=== PATIENT | male | born 1950 | race Caucasian/White ===

== ENCOUNTER 2024-04-30 12:46 | Inpatient (IN) | payer OTHER, SELFPAY ==
[2024-04-30] VITALS (45 sets, daily range): BP systolic 84–125; BP diastolic 58–98; BMI 26.6; BMI 25.5
[2024-04-30 06:40] LABS: % Basophils 0.1 % (0-2); % Eosinophils 0.1 % (0-6); % Immature Granulocytes 0.5 % (0-0.5); % Monocytes 10.5 % (1.7-9.3); % Neutrophils 83.8 % (42.2-75.2); Absolute Immature Granulocytes 0.1 10^3/uL (0-0.05); Absolute Lymphocytes 0.8 10^3/uL (1.2-3.4); Absolute Monocytes 1.6 10^3/uL (0.1-0.6); Hematocrit 49.8 % (39.0-52.0); Hemoglobin 17.5 g/dL (13.0-18.0); Mean Corp Hgb Conc. 35.1 g/dL (33.0-37.0); Mean Corpuscular Hgb 31.3 pg (27.0-31.0); Mean Corpuscular Volume 88.9 fL (80.0-94.0); Mean Platelet Volume 10.6 fL (7.4-10.4); Nucleated Red Blood Cells % 0 % (-); Platelet Count 241 10^3/uL (130-400); Red Cell Dist. Width 13.2 % (11.5-14.5); White Blood Cell Count 15.5 10^3/uL (4.8-10.8)
--- NOTE | 2024-04-30 06:45 | ED.GENMED ---
History of Present Illness
General
Chief Complaint: Abdominal Symptoms
Source: patient and spouse
Exam Limitations: none
Time Seen by Provider: 04/30/24 06:22
Nursing documentation reviewed up to this point in time: agreed with
History of Present Illness
History of Present Illness:
73-year-old male presents emergency room complaining of abdominal distention and decreased urine output. He has been incontinent over the last few days, and this is not happened to him before. He passed out last night, per his . He hit his
head, loss consciousness. He has a history of atrial fibrillation, CHF, and his reports that his PSA has been elevated. He has not seen his primary care in about 3 years. He is not taking any of his prescribed medications for atrial
fibrillation, CHF.
Past History
Past History
ED Past Medical History: Arrthythmia and HTN
ED Past Surgical History: None
Social History
Tobacco: Other (Smokes cigars)
Personal:
Living: with family
Employment: Employed
Review of Systems
Review of Systems
Allergies reviewed?: Yes
All Other Systems: Not applicable
Constitutional: Reports no symptoms
EENT: Reports no symptoms
Respiratory: Reports no symptoms
Cardiac: Reports no symptoms
ABD/GI: Reports abdominal pain
: Reports incontinence and difficulty voiding
Musculoskeletal: Reports no symptoms
Skin: Reports no symptoms
Neurological: Reports other (Confusion)
Endocrine: Reports no symptoms
Hematologic/Lymphatic: Reports no symptoms
Psychiatric: Reports no symptoms
Phy Exam
Physical Exam
Physical Exam:
Physical Exam
General: Afebrile
Neck: supple. no meningeal signs. normal posterior pharynx
Heart: s1/s2 tachycardia, irregular rhythm, no murmur. equal radial
pulses.
HEENT: Pupils equal round reactive to light, EOMI
Lungs: no acute respiratory distress. clear bilaterally
Abdomen: normal bowel sounds. not tender. no CVAT, abdomen distended
Neuro: alert and oriented. no focal neurological deficits cranial nerves II through XII intact
Skin: no rash
Psychiatric: well kept. interactive and cooperative
Extremities: no edema. no calf tenderness. negative homans. good distal pulses
Course
Orders/Labs/Results
Orders:
Orders
04/30/24 06:23
IV Insert/Care/Rem.- Treatment PRN
Pulse Ox/cont/shift [RESP] Stat
Quantity: 1
04/30/24 06:24
Electrocardiogram (*1) Stat
Reason for Study: Other
Other Reason for Exam: chest pain
Cardiac Monitoring- Treatment ONCE
EKG- Treatment ONCE
04/30/24 06:32
Complete Blood Count/With Diff Urgent
Comprehensive Metabolic Panel Urgent
Troponin I Urgent
04/30/24 06:35
Diltiazem HCl [Cardizem] 5 mg IV NOW STA
04/30/24 06:36
CT Head W/o Iv Contrast Urgent
Comment:
Reason For Exam: fall, confusion
04/30/24 06:40
Diltiazem 125 mg/125 ml Nss [Cardizem] 125 mg in 125 ml IV NOW
Initial dose in mg/hr, then titrate:: 5
Titrate to keep:: Heart rate 80-100 bpm
Titrate by mg/hr:: 5 mg/hr
Frequency of titrations (minutes):: 15
Maximum dose in mg/hr:: 15
04/30/24 07:02
Urinalysis Reflex To Culture Urgent
Date Specimen was Collected: 04/30/24
Time Specimen was Collected: 07:00
Urine Microscopic Reflex Cult Urgent
04/30/24 07:17
CT Abd/pel Without Iv Or Oral Urgent
Comment:
Reason For Exam: urinary retention
04/30/24 08:03
EKG [Electrocardiogram (*1)] Urgent
Reason for Study: Atrial Fibrillation
EKG- Treatment ONCE
Abnormal Lab Results
04/30/24 04/30/24
06:32 07:02
WBC 15.5 H 10^3/uL
(4.8-10.8)
MCH 31.3 H pg
(27.0-31.0)
MPV 10.6 H fL
(7.4-10.4)
Abs Immat Gran (auto) 0.1 H 10^3/uL
(0-0.05)
Absolute Neuts (auto) 13.0 H 10^3/uL
(1.4-6.5)
Absolute Lymphs (auto) 0.8 L 10^3/uL
(1.2-3.4)
Absolute Monos (auto) 1.6 H 10^3/uL
(0.1-0.6)
Neutrophils % 83.8 H %
(42.2-75.2)
Lymphocytes % 5.0 L %
(20.5-51.1)
Monocytes % 10.5 H %
(1.7-9.3)
Sodium 128 L mmol/L
(135-145)
Chloride 89 L mmol/L
(98-107)
Carbon Dioxide 20 L mmol/L
(22-30)
BUN 95 H mg/dl
(9-20)
Creatinine 8.2 H* mg/dL
(0.7-1.3)
Glucose 106 H mg/dl
(70-99)
Total Bilirubin 1.6 H mg/dl
(0.2-1.3)
Troponin I 0.600 H* ng/ml
Ur Occult Blood Reflex 3+ A
(Negative)
Urine RBC 21-25 A /HPF
(0-2)
04/30/24 06:32
04/30/24 06:32
Vital Signs
Initial and Last Documented VS:
Initial Vital Signs
Temp Pulse Resp BP Pulse Ox
98.0 F 78 16 125/75 97
04/30/24 06:10 04/30/24 06:10 04/30/24 06:10 04/30/24 06:10 04/30/24 06:10
Last Documented Vital Signs
Temp Pulse Resp BP Pulse Ox
98.2 F 83 22 108/86 96
04/30/24 09:45 04/30/24 09:40 04/30/24 09:40 04/30/24 09:40 04/30/24 09:40
MDM/Problems Addressed
Differential Diagnosis Includes:
Acute renal failure, urinary outlet obstruction, prostate cancer, syncope, dysrhythmia, rapid atrial fibrillation, intracranial hemorrhage
MDM/Problems Addressed:
73-year-old male with acute renal failure, rapid atrial fibrillation, paroxysmal, converting after IV fluids and urinary drainage. Patient also with syncope episode, urinary retention, head contusion, hyponatremia, elevated troponin. Suspect
troponin likely induced by tachycardia and acute renal failure. Patient denies chest pain. Discussed with nephrology, Dr. Rosario, who recommends full urinary drainage, and will evaluate for further fluid treatment in conjunction with
hyponatremia. Discussed with Dr. Cuevas, who will see patient.
Chronic conditions affecting care: Arrhythmia
Acute Exacerbation and/or Progression of Chronic Illness: Arrhythmia and Kidney disease
*Radiology
Radiology exam reviewed: preliminary read by ED provider (CT head no acute findings) and radiology read reviewed (CT abdomen pelvis shows moderate right and mild left hydroureteronephrosis, perinephric stranding about right kidney, ovoid lesion in
hepatic dome)
*Pulse Oximetry
Patient hypoxic: no
*EKG
Interpreted by ED Provider?: Yes
EKG Intrepretation Date: 04/30/24
EKG Intrepretation Time: 06:33
Interpretation: abnormal
Comparison EKG: changes noted
Heart Rate: 178
Rate: tachycardiac
Rhythm: a-fib
Gore: normal axis
Interval: normal interval
QRS Pattern: left vent hypertrophy and other (LAFB)
Ischemia: non-specific ST changes
*Ems Director Interpretation
Rate: normal
Interpretation: normal
Heart Rate: 94
Rhythm: sinus
*Critical Care Note
Total Time (30-74mins, 75-104mins- exclusive of procedures): 45
comment:
Critical care statement: A total of 45 minutes of critical care time was provided for this patient. This includes management of unstable vital signs, evaluation of the patient at bedside, reviewing the patient's pertinent medical records, discussion
with consultants, review of old EKGs and review of pertinent medical records. This time with separate from time utilized to perform the aforementioned documented procedures
Data Reviewed
Review of Other/Old Records Reveals: Labs (Prior creatinine 1.2 on 02/27/2021) and Operative Reports (Cardiac catheterization for possible ablation 03/04/2021, ablation by Dr. Luis Newton)
Source: records
Prescriptions/Medications Considered But Not Given:
Cardizem considered, but canceled due to hypotension, patient then spontaneously cardioverted after IV fluids. Anticoagulation will be considered by cardiology
Patient Management
Social determinants of health affecting care: Living situation, Strong social support and Other (Poor compliance)
Discussion with other providers: Hospitalist and Extruder (Cardiology and nephrology)
Escalation/DeEscalation of care consider admission/obs:
Admit indicated
ED Attending Note
-
Portions of this chart may have been created with voice recognition software.� Occasional wrong word or��sound alike� substitutions may have occurred due to the inherent limitations of voice recognition software.
Discharge Plan
Departure
Patient Disposition: Admit
Date of Disposition: 04/30/24
Time of Disposition: 07:57
Admit to: IMU
Presentation/result/management discussed w/ accepting MD/DO: Hospitalist
Patient with high blood pressure during this ER visit?: No
Condition: Serious
Discharge Problem:
Acute renal failure, Acute urinary retention, Atrial fibrillation with rapid ventricular response, Syncope, Contusion of head, Fall, Acute hyponatremia, Medical non-compliance
Prescriptions:
No Action
ascorbic acid (vitamin C) [Vitamin C] 500 MG tablet
1,000 mg PO DAILY
Patient Comments:
04/30/2024 Patient reports can't remember the last time he took medications.
cranberry fruit 400 MG tablet
4 cap PO DAILY PRN (Reason: inflammation)
Patient Comments:
04/30/2024 Patient reports can't remember the last time he took medications.
Slippery Elm Capsules
2 cap PO Q48H PRN (Reason: GI issuse)
Patient Comments:
04/30/2024 Patient reports can't remember the last time he took medications.
Niacels 400 MG capsule, extended release
250 mg PO DAILY
Patient Comments:
04/30/2024 Patient reports can't remember the last time he took medications.
grape seed extract 100 MG capsule
200 mg PO DAILY
Patient Comments:
04/30/2024 Patient reports can't remember the last time he took medications.
black cohosh root extract 80 MG capsule
40 mg PO DAILY
Patient Comments:
04/30/2024 Patient reports can't remember the last time he took medications.
magnesium oxide 400 MG capsule
400 mg PO DAILY
Patient Comments:
04/30/2024 Patient reports can't remember the last time he took medications.
coenzyme Q10 50 MG tablet,chewable
100 mg PO DAILY
Patient Comments:
04/30/2024 Patient reports can't remember the last time he took medications.
hawthorn hamilton 565 MG capsule
565 mg PO DAILY
Patient Comments:
04/30/2024 Patient reports can't remember the last time he took medications.
furosemide 40 MG tablet
40 mg PO DAILY
Patient Comments:
04/30/2024 Patient reports can't remember the last time he took medications.
amiodarone [Pacerone] 200 MG tablet
200 mg PO DAILY Qty: 60 6RF
Patient Comments:
04/30/2024 Patient reports can't remember the last time he took medications.
Rx Instructions:
Please note decreased daily dose
metoprolol succinate 50 MG tablet extended release 24 hr
50 mg PO DAILY Qty: 0 0RF
Patient Comments:
04/30/2024 Patient reports can't remember the last time he took medications.
Rx Instructions:
Please note decreased daily dose
lisinopril 10 MG tablet
10 mg PO DAILY
Patient Comments:
04/30/2024 Patient reports can't remember the last time he took medications.
Eliquis 5 MG tablet
5 mg PO BID Qty: 60 6RF
Patient Comments:
04/30/2024 Patient reports can't remember the last time he took medications.
Referrals:
Mika Brown DO [Family Provider] -
Interventions
Interventions:
*Risk Screen - Suicide Last Done: 04/30/24 07:16
*General Assessment Last Done: 04/30/24 06:10
*Neglect/Abuse Screening Last Done: 04/30/24 07:15
ED- Fall Risk Assessment Last Done: 04/30/24 07:05
*ED COVID-19 Vaccine History Last Done: 04/30/24 06:10
XZ-Ujafpa-Diezqgeegi Assessment Last Done: 04/30/24 07:05
Discharge Date and Time
Print Language: ROMANIAN
[2024-04-30 07:05] LABS: ALT (SGPT) 25 U/L (0-50); AST (SGOT) 22 U/L (17-59); Albumin 4.3 g/dl (3.5-5.0); Alkaline Phosphatase 79 U/L (38-126); Blood Urea Nitrogen 95 mg/dl (9-20); Calcium 8.7 mg/dl (8.4-10.2); Carbon Dioxide 20 mmol/L (22-30); Chloride 89 mmol/L (98-107); Estimated Creatinine Clearance 8 ml/min; Glucose 106 mg/dl (70-99); Potassium 4.4 mmol/L (3.5-5.1); Sodium 128 mmol/L (135-145); Total Bilirubin 1.6 mg/dl (0.2-1.3)
[2024-04-30 07:53] LABS: Urine Albumin Trace (Neg - Trace); Urine Bilirubin Negative (Negative); Urine Character Clear (Clear); Urine Color Yellow; Urine Glucose Negative (Negative); Urine Ketone Negative (Negative); Urine Leukocyte Negative (Negative); Urine Nitrite Negative (Negative); Urine Occult Blood 3+ (Negative); Urine Urobilinogen Negative (Neg - 1+)
--- NOTE | 2024-04-30 08:11 | EDRN ---
Unable to complete home medication list as patient and spouse can not tell what medications patient should be on or when they were last taken. Patient states 'I don't take medications'. Prior list remains on chart until pharmacist can review and
confirm current list.
[2024-04-30 08:13] LABS: Urine Red Blood Cell 21-25 /HPF (0-2)
[2024-04-30 08:14] LABS: Urine Squamous Cell 0-2 /LPF (Few)
--- NOTE | 2024-04-30 10:03 | HPS.HSE ---
Family Physician
-
Family Physician: Mika Brown
Chief Complaint
-
Decreased urine output, fall
History of Present Illness
73-year-old male with a past medical history of paroxysmal atrial fibrillation, CHF, and hypertension who presents with decreased urine output, fall, and near syncope. Patient reports that he has been having decreased urinary output for the last 3
days. Patient and also reports that he had a fall last night, hit his head. Patient did not lose consciousness. His eyes were awake, and he was dazed per . Upon arrival to the ED, patient was found to have rapid atrial fibrillation and
hypotension. He received IV Cardizem bolus and drip, converted to normal sinus rhythm. He denies chest pain, denies shortness of breath. Reports intermittent palpitations. He used to follow with Dr. Neville. He is supposed to be taking
Eliquis 5 mg twice a day, amiodarone 200 mg twice a day, Toprol XL 50 mg daily, and lisinopril 10 mg daily. He self discontinued all his medications years ago, because he did not want to take them.
Medical History
Past Medical History
Past Medical History: Reports Other
Additional Past Medical History:
Paroxysmal atrial fibrillation status post ablation
Hypertension
Hyperlipidemia
Elevated PSA
Medical noncompliance
Past Surgical History: Reports Other
Additional Past Surgical History:
Prostate biopsy x 2
Social History
Tobacco: Smoker (Smokes 1 cigar a day)
Alcohol: None
Drug: None
Personal:
Living: With Family
Family History
Family History: Not pertinent
Allergies / Home Medications
Allergies reflects when Allergies were last updated in [facility].
Home Medications with original date entered in [facility]
Allergy/Medication List:
Allergies
Allergy/AdvReac Type Severity Reaction Status Date / Time
No Known Allergies Allergy Verified 04/30/24 06:18
Home Medications Table - record
�Medication �Instructions �Recorded �Confirmed
Slippery Elm Capsules 2 cap PO Q48H PRN GI issuse 09/12/20 04/30/24
black cohosh root extract 80 mg 40 mg PO DAILY 03/04/21 04/30/24
capsule
dandelion root 500 mg capsule 500 mg PO DAILY 04/30/24 04/30/24
fredrick (Zingiber officinalis) 250 250 mg PO DAILY 04/30/24 04/30/24
mg capsule
magnesium oxide 250 mg PO DAILY 04/30/24 04/30/24
potassium 99 mg tablet 99 mg PO DAILY 04/30/24 04/30/24
turmeric root extract 500 mg tablet 1,000 mg PO DAILY 04/30/24 04/30/24
Review of Systems
-
A 12 point ROS was completed and negative except as noted: Yes
Physical Exam
Vital Signs
Vital Signs
Temp Pulse Resp BP Pulse Ox
98.2 F 83 17 107/86 96
04/30/24 09:45 04/30/24 10:00 04/30/24 10:00 04/30/24 09:45 04/30/24 10:00
Physical Exam
General: No Apparent Distress
HEENT: NormoCephalic, Anicteric and Moist mucous membranes
Respiratory: Clear
Cardiac: S1/S2 and Regular Rhythm
GI: Soft, Non Tender, Non Distended and Normal Bowel Sounds
Musculoskeletal: No Clubbing, No Cyanosis and No Edema
Skin: Warm and Dry
Neuro: Awake, Alert and Oriented
Psych: Calm
Laboratory Results
-
04/30/24 06:32
04/30/24 06:32
Laboratory Results
Total Bilirubin 1.6 mg/dl (0.2-1.3) H 04/30/24 06:32
AST 22 U/L (17-59) 04/30/24 06:32
ALT 25 U/L (0-50) 04/30/24 06:32
Alkaline Phosphatase 79 U/L (38-126) 04/30/24 06:32
Troponin I 0.600 ng/ml H* 04/30/24 06:32
Impression/Plan
-
HPI: 73-year-old male with a past medical history of paroxysmal atrial fibrillation, CHF, and hypertension who presents with decreased urine output, fall, and near syncope. Patient reports that he has been having decreased urinary output for the
last 3 days. Patient and also reports that he had a fall last night, hit his head. Patient did not lose consciousness. His eyes were awake, and he was dazed per . Upon arrival to the ED, patient was found to have rapid atrial
fibrillation and hypotension. He received IV Cardizem bolus and drip, converted to normal sinus rhythm. He denies chest pain, denies shortness of breath. Reports intermittent palpitations. He used to follow with Dr. Neville. He is supposed
to be taking Eliquis 5 mg twice a day, amiodarone 200 mg twice a day, Toprol XL 50 mg daily, and lisinopril 10 mg daily. He self discontinued all his medications years ago, because he did not want to take them.
CT abd/pelvis:
1. Moderate right and mild left hydroureteronephrosis without CT evidence for an obstructing ureteral calculus. Large amount of perinephric fat stranding and fluid about the right kidney for which correlation for a superimposed infection is
recommended.
2. Collapsed urinary bladder with a Crowley catheter in place.
3. Prostatomegaly.
4. Subtle ovoid low-attenuation lesion in the hepatic dome measuring 5.2 cm. Recommend a follow-up abdominal MRI without and with contrast for more definitive characterization on a routine basis.
#Obstructive uropathy
#Prostamegaly
#Acute kidney injury
#Moderate right hydroureteronephrosis with right forniceal rupture, mild left hydroureteronephrosis
#History of elevated PSA
History of 2 prostate biopsies in the past
Crowley inserted in the ER
Appreciate urology input, patient will need to be discharged home with Crowley
Urology recommends starting finasteride, add Flomax when patient is more medically stable
No anticoagulation for 48 hours secondary to risk of decompression hematuria
Creatinine 8.2 on admission
Gentle IV fluids, trend creatinine, no nephrotoxic drugs/NSAIDs
#Hyponatremia
Check urine sodium, urine osmolality, serum osmolality
Check a.m. cortisol, a.m. TSH/free T4
Fluid restrict, trend sodium
#Atrial fibrillation with rapid ventricular response
Converted to normal sinus rhythm in the ER status post IV Cardizem bolus and drip
Start Toprol XL 25 mg twice a day
No anticoagulation for 48 hours secondary to risk of decompression hematuria
#Leukocytosis
Afebrile, UA negative
No cough, no shortness of breath
Monitor off antibiotics
#History of essential hypertension
Blood pressure soft, monitor on metoprolol for rate control
DVT prophylaxis�SCDs
Full code
Updated family at bedside 04/30
Discussed with cardiology and urology
Total time spent to see the patient on the floor, examine the patient, review data and lab results, discuss treatment plan with patient, nursing staff around 77 minutes.
--- NOTE | 2024-04-30 10:44 | CON.CAR ---
Addendum entered and electronically signed by Preet Cuevas MD 04/30/24 12:42:
I saw and examined the patient.
The [employer] Fin[employer] Operator Tig Welder's note was reviewed and I agree with the note.
Comment:
GEN: No distress, awake, Ox3
HEENT: supple, anicteric, mmm
LUNGS: CTA, no wheezes/rales
CV: Reg, S1/S2, 1/6 syst LSB, no gallop
ABD: soft, BS+, NT/ND
EXT: No edema
NEURO: Gross non-focal
SKIN: No rash
Plan:
73-year-old male with past medical history of paroxysmal atrial fibrillation status post PVI in February 28, nonischemic cardiomyopathy, hypertension presents with abdominal pain, incontinence, and obstructive uropathy. He was found to have acute
kidney failure with a creatinine of 8.2. He is having difficulty urinating for 1 week. He then had an episode where he had near syncope. Troponin was abnormal at 0.6. He was found to be in atrial fibrillation with rapid ventricular rate. He was
placed on IV Cardizem and converted to sinus rhythm. CT scan reveals moderate bilateral hydronephrosis without obstructing stones. He had stopped his cardiac medications several years ago. He has not followed up in several years.
Agree with plans for Cervantes and urologic evaluation. Trend creatinine.
Would restart full anticoagulation once stable from a urologic standpoint
Start Toprol 25 mg daily. Will repeat echo on Thursday.
Long-term he should resume Eliquis, hopefully over the next 24-48 hours.
Original Note:
Consultation
Consultation Request
Date/Time Consultation Requested: 04/30/2024
Date/Time Consultation Performed: 04/30/2024
Requesting Provider: Dr. Fair
Performing Provider: Ninoska Gutierrez PA-C for Dr. Cuevas
Reason for Consultation: Abnormal troponin, syncope, A-fib with rapid ventricular response
Medical History
-
History of Present Illness:
HPI 04/30/2024:
Patient is a 73-year-old male with past medical history significant for paroxysmal atrial fibrillation status post PVI and atrial flutter ablation February 2021, nonischemic cardiomyopathy, heart failure and hypertension. Patient was found to have a
nonischemic cardiomyopathy in 2020 in the setting of atrial fibrillation with rapid ventricular response. He underwent PVI ablation and was maintaining sinus rhythm with last follow-up in April 2021. He had repeat echocardiogram in June
2021 which showed normalization of ejection fraction to 55 to 60%. He then was lost to follow-up and has not seen cardiology since. Patient has not seen a doctor in over 3 years. He self discontinued taking all his medication including his
amiodarone and Eliquis.
Patient now presenting to emergency department 04/30/2024 with abdominal pain/distention, decreased urine output with urinary incontinence and syncopal event. Patient reports approximately 1 week ago he started noticing difficulty urinating with
urinary tract symptoms. Then over the last 3 days he noted very minimal urine output with some incontinence. He started having some abdominal pain and distention. He was helping his symptoms by getting hot showers and using warm compresses to the
abdominal area. He started having intermittent palpitations and rapid heartbeats approximately 3 days ago. Last evening after getting out of the shower he had a syncopal episode where he lost consciousness and hit his head. Blood work showed INGRIS
with creatinine of 8.2 as well as hyponatremia and mild leukocytosis. Troponin elevated at 0.600. He was found to be in atrial fibrillation with rapid ventricular response. Head CT showed no acute intracranial abnormality. CT of abdomen showed
moderate right and mild left hydroureteronephrosis without CT evidence for an obstructing ureteral calculus, collapsed urinary bladder, Prostatomegaly and ovoid low-attenuation lesion in liver. Patient spontaneously converted to sinus rhythm after
cervantes catheter was placed. At time of this evaluation patient resting comfortably in bed with Cervantes in place. He reports significant improvement of his abdominal pain and distention. He denies having palpitations or tachycardia, chest pain or
shortness of breath
PMH:
Paroxysmal, typical atrial flutter with RVR
Status post PVI and atrial flutter ablation February 2021
HF with recover EF
Nonischemic cardiomyopathy, resolved
Hypertension
Elevated PSA
Medication noncompliance
Past Medical History
Past Medical History: Other (See HPI)
Past Surgical History: Cardiac (Status post PVI and flutter ablation February 2024)
Social History
Tobacco: Smoker (Cigar smoker)
Alcohol: Occasional
Drug: None
Personal:
Living: With Family
Family History
Family History: Other (Mother had stroke in 70's. Dad prostate CA)
Allergies / Home Medications
Allergy/AdvReac Type Severity Reaction Status Date / Time
No Known Allergies Allergy Verified 04/30/24 06:18
�Medication �Instructions �Recorded �Confirmed �Type
[place] Capsules 2 cap PO Q48H PRN GI issuse 09/12/20 03/04/21 History
ascorbic acid (vitamin C) 500 mg 1,000 mg PO DAILY 09/12/20 03/04/21 History
tablet (Vitamin C)
cranberry fruit 400 mg tablet 4 cap PO DAILY PRN inflammation 09/12/20 03/04/21 History
lisinopril 10 mg tablet 10 mg PO DAILY Blood pressure 02/14/21 03/04/21 History
apixaban 5 mg tablet (Eliquis) 5 mg PO BID Blood clot 02/18/21 03/04/21 Rx
prevention/tx #60 tabs
niacin 400 mg capsule,extended 250 mg PO DAILY 03/01/21 03/04/21 History
release (Niacels)
amiodarone 200 mg tablet (Pacerone) 200 mg PO DAILY Arrhythmia #60 tabs 03/04/21 03/04/21 Rx
black cohosh root extract 80 mg 40 mg PO DAILY 03/04/21 03/04/21 History
capsule
coenzyme Q10 50 mg chewable tablet 100 mg PO DAILY 03/04/21 03/04/21 History
furosemide 40 mg tablet 40 mg PO DAILY Heart Failure 03/04/21 03/04/21 History
grape seed extract 100 mg capsule 200 mg PO DAILY 03/04/21 03/04/21 History
hawthorn hamilton 565 mg capsule 565 mg PO DAILY 03/04/21 03/04/21 History
magnesium oxide 400 mg PO DAILY 03/04/21 03/04/21 History
metoprolol succinate 50 mg 50 mg PO DAILY ##0 03/04/21 03/04/21 Rx
tablet,extended release 24 hr
Review of Systems
-
History Source: Patient
All other systems: Negative unless noted
Physical Exam
Vital Signs
Temp Pulse Resp BP Pulse Ox
98.2 F 83 17 104/83 96
04/30/24 09:45 04/30/24 10:00 04/30/24 10:00 04/30/24 10:00 04/30/24 10:00
GEN: No distress, awake, Ox3, lying in bed
HEENT: supple, anicteric, mmm
LUNGS: CTA, no wheezes/rales; on room air
CV: Reg, S1/S2, no murmur, rub or gallop
ABD: soft, BS+, NT/ND
:Indwelling Cervantes with yellow urine
EXT: No edema, clubbing or cyanosis
NEURO: Gross non-focal
SKIN: No rash, warm, dry, pink
Lab Results
04/30/24 06:32
04/30/24 06:32
Troponin I 0.600 ng/ml H* 04/30/24 06:32
Impression / Plan
-
PCP: Mika Brown
Toll Service Observer: Luis Newton, last seen 04/2021
Impression:
Presents 04/30/2024 with abdominal pain/distention and minimal urine output as well as urinary incontinence
Syncope hitting head 04/29/2024
INGRIS, admission creatinine 8.2
Atrial fibrillation with rapid ventricular response, spontaneous conversion in emergency department
Abnormal troponin initial 0.6
Urinary retention/hydronephrosis
Prostatomegaly
Head contusion
Hyponatremia
Leukocytosis
Paroxysmal, typical atrial flutter with RVR
Status post PVI and atrial flutter ablation February 2021
HF with recover EF
Nonischemic cardiomyopathy, resolved
Hypertension
Elevated PSA
Medication noncompliance
Echo 07/02/2021: EF 55 to 60% with normal regional wall motion. Mild to moderate LVH. No significant valvular disease, PAP 27 mmHg
Echo 10/30/20: EF 33%, moderately enlarged LA and mildly dilated RA, compared to echo 09/12/20 the ER is lower
Echo 09/12/2020: EF 40-45%, mild hypokinesis of basal inferolateral wall and apical lateral zuleta, stage II diastolic dysfunction, biatrial dilatation, mild to mod MR, top normal aortic root size 3.6 cm sinus of Valsalva 3.[address] junction, mildly
dilated ascending aorta 4.0 cm
Nuc stress test 11/07/2020:no active coronary artery disease and moderately to severely reduced heart function.
Plan:
-Presents 04/30/2024 with abdominal pain/distention and minimal urine output, palpitations, weakness and syncopal event
-INGRIS, admission creatinine 8.2. CT of abdomen and pelvis showing moderate right and mild left hydronephrosis collapsed urinary bladder and prostatomegaly. Cervantes catheter placed 04/30/2024 in emergency department with good urine output. Nephrology
and urology has been consulted.
-Per urology patient is at risk for decompression hematuria over next 24 hours. Also concern for rupture of that right renal pelvis with urine extravasation. Therefore they are recommending no anticoagulation oral or heparin for the next 48 hours
-Paroxysmal atrial fibrillation with rapid ventricular response, spontaneous conversion in emergency department after Cervantes insertion. Patient had PVI ablation in February 2021 and had been maintained on amiodarone and Eliquis however self
discontinued in early 2021. He reports he has had no reoccurrence of atrial fibrillation until this week. Will need eventual anticoagulation once cleared from urology and nephrology.
-Would add beta-peter. Patient already given a dose of Lopressor. Would consider transitioning to Toprol within the next 24 hours.
-History of nonischemic cardiomyopathy likely tachycardia induced with recovered ejection fraction on echo in 2021. Will need to repeat echo this admission
-Abnormal troponin initial 0.6 suspect nonischemic myocardial injury secondary to INGRIS, hydronephrosis and A-fib with rapid ventricular response. Trend to peak.
-EKG in sinus rhythm does not show any ischemic changes. Patient denies chest pain or shortness of breath.
Plan discussed with nurses, hospitalist, urology, nephrology, patient and his
HPI 04/30/2024:
Patient is a 73-year-old male with past medical history significant for paroxysmal atrial fibrillation status post PVI and atrial flutter ablation February 2021, nonischemic cardiomyopathy, heart failure and hypertension. Patient was found to have a
nonischemic cardiomyopathy in 2020 in the setting of atrial fibrillation with rapid ventricular response. He underwent PVI ablation and was maintaining sinus rhythm with last follow-up in April 2021. He had repeat echocardiogram in June
2021 which showed normalization of ejection fraction to 55 to 60%. He then was lost to follow-up and has not seen cardiology since. Patient has not seen a doctor in over 3 years. He self discontinued taking all his medication including his
amiodarone and Eliquis.
Patient now presenting to emergency department 04/30/2024 with abdominal pain/distention, decreased urine output with urinary incontinence and syncopal event. Patient reports approximately 1 week ago he started noticing difficulty urinating with
urinary tract symptoms. Then over the last 3 days he noted very minimal urine output with some incontinence. He started having some abdominal pain and distention. He was helping his symptoms by getting hot showers and using warm compresses to the
abdominal area. He started having intermittent palpitations and rapid heartbeats approximately 3 days ago. Last evening after getting out of the shower he had a syncopal episode where he lost consciousness and hit his head. Blood work showed INGRIS
with creatinine of 8.2 as well as hyponatremia and mild leukocytosis. Troponin elevated at 0.600. He was found to be in atrial fibrillation with rapid ventricular response. Head CT showed no acute intracranial abnormality. CT of abdomen showed
moderate right and mild left hydroureteronephrosis without CT evidence for an obstructing ureteral calculus, collapsed urinary bladder, Prostatomegaly and ovoid low-attenuation lesion in liver. Patient spontaneously converted to sinus rhythm after
cervantes catheter was placed. At time of this evaluation patient resting comfortably in bed with Cervantes in place. He reports significant improvement of his abdominal pain and distention. He denies having palpitations or tachycardia, chest pain or
shortness of breath
Data Reviewed
-
EKG: Report Reviewed by me, Discussed with Physician, Discussed with Nurse, Discussed with Patient and Discussed with Family
CT Scan: Report Reviewed by me, Discussed with Physician, Discussed with Nurse, Discussed with Patient and Discussed with Family
Labs: Labs Reviewed by me, Discussed with Physician, Discussed with Nurse, Discussed with Patient and Discussed with Family
Old Records: Reviewed
[2024-04-30] MEDS: LOPRESSOR 25 MG PO (11:31)
--- NOTE | 2024-04-30 12:58 | W.PN.URO.CBU ---
Today's Communication / Plan
-
Keep Crowley catheter: have advised patient and he will need to be discharged home with it
Begin finasteride
Add tamsulosin when patient is more medically stable
Assessment / Plan
-
Prostatomegaly with longstanding bladder outlet obstruction which has advanced to urine retention with obstructive uropathy, azotemia and hyponatremia
Radiographic evidence of right forniceal rupture
History of elevated PSA
Diagnosis
-
Date of Service: April 30, 2024
-
Patient Diagnosis:
Urine retention with obstructive uropathy
Right forniceal rupture with retroperitoneal extravasation of urine and prostatomegaly by CT scan: images personally reviewed
Recent onset of symptoms c/w overflow urine incontinence
--
Personal and family history of BPH
History of elevated PSA: s/p negative prostate biopsy x 2
Subjective
-
Comfortable
No catheter bother
Objective
-
Vital Signs
Temp Pulse Resp BP Pulse Ox
98.2 F 78 15 116/84 96
04/30/24 09:45 04/30/24 12:00 04/30/24 12:00 04/30/24 12:00 04/30/24 12:00
Intake and Output
04/29/24 04/30/24 05/01/24
06:59 06:59 06:59
Intake Total 1000 / 1000
Output Total 3100 / 3100
Balance -2100 / -2100
Intake:
IV fluids (Total) 1000 / 1000
NSS 1000 / 1000
Output:
Urine, Crowley 3100 / 3100
Laboratory Results
04/30/24 06:32
04/30/24 06:32
Review of Systems
-
Constitutional: Fatigue
Respiratory: No Symptoms
Cardiac: No Symptoms
Abdomen/GI: No Symptoms
: Difficulty Voiding
Neurological: No Symptoms
Physical Exam
-
General - well developed, well nourished, no acute distress
Abdomen - soft, non-tender, bladder non-palpable, no CVAT
Genitalia - normal with Crowley draining nikolai urine
Skin - warm & dry with no rash
Neuro - AOx3, no motor deficits
Counseling
-
Will follow up while inpatient and arrange for outpatient evaluation to further address BPH/retention/elevated PSA
[2024-04-30 13:03] LABS: Osmolality Serum 302 mOsm/kg (275-300)
--- NOTE | 2024-04-30 15:05 | PTCARENOTE ---
Received patient from ED via stretcher. Pt AAOX3. Pox: 95% RA. 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 Call durant within reach. Plan of care ongoing.
[2024-04-30 15:37] LABS: Osmolality Urine 446 mOsm/kg (300-900)
[2024-04-30 15:41] LABS: Urine Sodium 18 mmol/L (30-90)
[2024-04-30] MEDS: PROSCAR 5 MG PO (16:10)
[2024-04-30] MEDS: SODIUM BICARBONATE 1075 MEQ IV (16:11)
[2024-04-30] MEDS: TOPROL XL 25 MG PO (23:11)
[2024-05-01] VITALS (7 sets, daily range): BP systolic 113–143; BP diastolic 74–94; PULSE 80; O2SAT 98; BMI 24.8
[2024-05-01] MEDS: SODIUM BICARBONATE 1075 MEQ IV (06:18)
[2024-05-01] MEDS: TOPROL XL 25 MG PO ×2 (07:11→20:35)
[2024-05-01] MEDS: PROSCAR 5 MG PO (07:13)
[2024-05-01 07:29] LABS: Blood Urea Nitrogen 45 mg/dl (9-20); Calcium 8.4 mg/dl (8.4-10.2); Carbon Dioxide 32 mmol/L (22-30); Chloride 101 mmol/L (98-107); Estimated Creatinine Clearance 45 ml/min; Glucose 96 mg/dl (70-99); Magnesium 2.5 mg/dl (1.6-2.3); Potassium 4.1 mmol/L (3.5-5.1); Sodium 136 mmol/L (135-145)
[2024-05-01 07:59] LABS: TSH Reflex To Free T4 4.82 uIU/ml (0.47-4.68)
[2024-05-01 08:23] LABS: Hematocrit 40.5 % (39.0-52.0); Hemoglobin 13.5 g/dL (13.0-18.0); Mean Corp Hgb Conc. 33.3 g/dL (33.0-37.0); Mean Corpuscular Hgb 30.4 pg (27.0-31.0); Mean Corpuscular Volume 91.2 fL (80.0-94.0); Mean Platelet Volume 10.7 fL (7.4-10.4); Platelet Count 188 10^3/uL (130-400); Red Blood Cell Count 4.44 10^6/uL (4.70-6.10); Red Cell Dist. Width 13.2 % (11.5-14.5); White Blood Cell Count 6.4 10^3/uL (4.8-10.8)
[2024-05-01 08:28] LABS: Free T4 1.15 ng/dl (0.78-2.19)
--- NOTE | 2024-05-01 08:33 | W.PN.HOSP.TC ---
Today's Communication/Plan
-
see bold
Assessment / Plan
Assessment / Plan
HPI: 73-year-old male with a past medical history of paroxysmal atrial fibrillation, CHF, and hypertension who presents with decreased urine output, fall, and near syncope. Patient reports that he has been having decreased urinary output for the
last 3 days. Patient and also reports that he had a fall last night, hit his head. Patient did not lose consciousness. His eyes were awake, and he was dazed per . Upon arrival to the ED, patient was found to have rapid atrial
fibrillation and hypotension. He received IV Cardizem bolus and drip, converted to normal sinus rhythm. He denies chest pain, denies shortness of breath. Reports intermittent palpitations. He used to follow with Dr. Neville. He is supposed
to be taking Eliquis 5 mg twice a day, amiodarone 200 mg twice a day, Toprol XL 50 mg daily, and lisinopril 10 mg daily. He self discontinued all his medications years ago, because he did not want to take them.
CT abd/pelvis:
1. Moderate right and mild left hydroureteronephrosis without CT evidence for an obstructing ureteral calculus. Large amount of perinephric fat stranding and fluid about the right kidney for which correlation for a superimposed infection is
recommended.
2. Collapsed urinary bladder with a Crowley catheter in place.
3. Prostatomegaly.
4. Subtle ovoid low-attenuation lesion in the hepatic dome measuring 5.2 cm. Recommend a follow-up abdominal MRI without and with contrast for more definitive characterization on a routine basis.
#Obstructive uropathy
#Prostamegaly
#Acute kidney injury
#Moderate right hydroureteronephrosis with right forniceal rupture, mild left hydroureteronephrosis
#History of elevated PSA
History of 2 prostate biopsies in the past
Crowley inserted in the ER. Appreciate urology input, patient will need to be discharged home with Crowley. Possible void trial in 2 weeks after discharge
Urology recommends starting finasteride, plan to add Flomax 05/02
No anticoagulation for 48 hours secondary to risk of decompression hematuria
Creatinine 8.2 on admission, now 1.4
Gentle IV fluids, trend creatinine, no nephrotoxic drugs/NSAIDs
#Hyponatremia
Resolved, TSH/cortisol normal
Fluid restrict, trend sodium
#Atrial fibrillation with rapid ventricular response
Converted to normal sinus rhythm in the ER status post IV Cardizem bolus and drip
Started Toprol XL 25 mg twice a day
No anticoagulation for 48 hours secondary to risk of decompression hematuria
May resume Eliquis 5 mg twice a day in 05/02
#Leukocytosis
Afebrile, UA negative
No cough, no shortness of breath
Resolved. Monitor off antibiotics
#History of essential hypertension
Blood pressure soft, monitor on metoprolol for rate control
#Medical noncompliance
Self discontinued all his medications years ago
DVT prophylaxis�SCDs
Full code
Updated family at bedside 04/30
Discussed with cardiology and urology
Total time spent to see the patient on the floor, examine the patient, review data and lab results, discuss treatment plan with patient, nursing staff around 51 minutes.
Physical Exam
General: No acute distress
HEENT: Normocephalic, Atraumatic, EOMI, MMM
Respiratory: Clear to Auscultation bilaterally
Cardiac: Normal S1/S2, Regular Rate and Rhythm
GI: Soft, Nontender, Nondistended, Normal Bowel Sounds
Extremities: No Clubbing, Cyanosis, or Edema
Neuro: Nonfocal/Grossly Intact
Psych: Calm, Cooperative
Derm: No Visible lesions
Anticipated Discharge: 24 - 48 hours
Subjective/Interval History
-
Date of Service: May 01, 2024
Patient reports feeling much improved. No chest pain, no shortness of breath. No fever, no vomiting. No palpitations.
Objective Data
-
Labs:
Laboratory Results
05/01/24
06:57
WBC 6.4
Hgb 13.5 D
Hct 40.5
Plt Count 188 D
Sodium 136 D
Potassium 4.1
Chloride 101
Carbon Dioxide 32 H
BUN 45 H
Creatinine 1.4 H
Glucose 96
Calcium 8.4
Vital Signs:
Vital Signs
Temp Pulse Resp BP Pulse Ox
98.0 F 70 16 130/80 96
05/01/24 07:55 05/01/24 07:55 05/01/24 07:55 05/01/24 07:55 05/01/24 07:55
I&O
04/30/24 05/01/24 05/02/24
06:59 06:59 06:59
Intake Total 1959 / 1959
Output Total 5950 / 5950
Balance -3990 / -3990
--- NOTE | 2024-05-01 09:28 | W.PN.CARDCBS ---
Today's Communication / Plan
-
-INGRIS, admission creatinine 8.2. CT of abdomen and pelvis showing moderate right and mild left hydronephrosis collapsed urinary bladder and prostatomegaly. Cervantes catheter placed 04/30/2024 in emergency department with good urine output. Nephrology
and urology has been consulted.
-Cr much improved last 24 hrs
-Resume anticoagulation once ok with urology. Anticoagulation being held by urology for up to 48 hrs from admit due to risk of bleeding.
-Paroxysmal atrial fibrillation with rapid ventricular response, spontaneous conversion in emergency department after Cervantes insertion.
-Patient had PVI ablation in February 2021 and had been maintained on amiodarone and Eliquis however self discontinued in early 2021; he reports he has had no reoccurrence of atrial fibrillation until this week.
-Eventual anticoagulation once cleared from urology and nephrology.
-History of nonischemic cardiomyopathy likely tachycardia induced with recovered ejection fraction on echo in 2021.
-Consider echo this admit.
-Toprol added this admit.
-Abnormal troponin initial 0.6 suspect nonischemic myocardial injury secondary to INGRIS, hydronephrosis and A-fib with rapid ventricular response.
-Medical therapy of nonMI trop
-Trend to peak.
-EKG in sinus rhythm does not show any ischemic changes.
Impression / Plan
-
.
PCP: Mika Brown
Bin Cleaner: Luis Newton, last seen 04/2021
Impression:
Presents 04/30/2024 with abdominal pain/distention and minimal urine output as well as urinary incontinence
Syncope hitting head 04/29/2024
INGRIS, admission creatinine 8.2
Atrial fibrillation with rapid ventricular response, spontaneous conversion in emergency department
Abnormal troponin initial 0.6
Urinary retention/hydronephrosis
Prostatomegaly
Head contusion
Hyponatremia
Leukocytosis
Hx Paroxysmal, typical atrial flutter
Status post PVI and atrial flutter ablation February 2021
HF with recover EF
Nonischemic cardiomyopathy, resolved
Hypertension
Elevated PSA
Medication noncompliance
Echo 07/02/2021: EF 55 to 60% with normal regional wall motion. Mild to moderate LVH. No significant valvular disease, PAP 27 mmHg
Echo 10/30/20: EF 33%, moderately enlarged LA and mildly dilated RA, compared to echo 09/12/20 the ER is lower
Echo 09/12/2020: EF 40-45%, mild hypokinesis of basal inferolateral wall and apical lateral zuleta, stage II diastolic dysfunction, biatrial dilatation, mild to mod MR, top normal aortic root size 3.6 cm sinus of Valsalva 3.[address] junction, mildly
dilated ascending aorta 4.0 cm
Nuc stress test 11/07/2020:no active coronary artery disease and moderately to severely reduced heart function.
Plan:
-Presents 04/30/2024 with abdominal pain/distention and minimal urine output, palpitations, weakness and syncopal event
-INGRIS, admission creatinine 8.2. CT of abdomen and pelvis showing moderate right and mild left hydronephrosis collapsed urinary bladder and prostatomegaly. Cervantes catheter placed 04/30/2024 in emergency department with good urine output. Nephrology
and urology has been consulted.
-Cr much improved last 24 hrs
-Resume anticoagulation once ok with urology. Anticoagulation being held by urology for up to 48 hrs from admit due to risk of bleeding.
-Paroxysmal atrial fibrillation with rapid ventricular response, spontaneous conversion in emergency department after Cervantes insertion.
-Patient had PVI ablation in February 2021 and had been maintained on amiodarone and Eliquis however self discontinued in early 2021; he reports he has had no reoccurrence of atrial fibrillation until this week.
-Eventual anticoagulation once cleared from urology and nephrology.
-History of nonischemic cardiomyopathy likely tachycardia induced with recovered ejection fraction on echo in 2021.
-Consider echo this admit.
-Toprol added this admit.
-Abnormal troponin initial 0.6 suspect nonischemic myocardial injury secondary to INGRIS, hydronephrosis and A-fib with rapid ventricular response.
-Medical therapy of nonMI trop
-Trend to peak.
-EKG in sinus rhythm does not show any ischemic changes.
Discussed with nursing
HPI 04/30/2024:
Patient is a 73-year-old male with past medical history significant for paroxysmal atrial fibrillation status post PVI and atrial flutter ablation February 2021, nonischemic cardiomyopathy, heart failure and hypertension. Patient was found to have a
nonischemic cardiomyopathy in 2020 in the setting of atrial fibrillation with rapid ventricular response. He underwent PVI ablation and was maintaining sinus rhythm with last follow-up in April 2021. He had repeat echocardiogram in June
2021 which showed normalization of ejection fraction to 55 to 60%. He then was lost to follow-up and has not seen cardiology since. Patient has not seen a doctor in over 3 years. He self discontinued taking all his medication including his
amiodarone and Eliquis.
Patient now presenting to emergency department 04/30/2024 with abdominal pain/distention, decreased urine output with urinary incontinence and syncopal event. Patient reports approximately 1 week ago he started noticing difficulty urinating with
urinary tract symptoms. Then over the last 3 days he noted very minimal urine output with some incontinence. He started having some abdominal pain and distention. He was helping his symptoms by getting hot showers and using warm compresses to the
abdominal area. He started having intermittent palpitations and rapid heartbeats approximately 3 days ago. Last evening after getting out of the shower he had a syncopal episode where he lost consciousness and hit his head. Blood work showed INGRIS
with creatinine of 8.2 as well as hyponatremia and mild leukocytosis. Troponin elevated at 0.600. He was found to be in atrial fibrillation with rapid ventricular response. Head CT showed no acute intracranial abnormality. CT of abdomen showed
moderate right and mild left hydroureteronephrosis without CT evidence for an obstructing ureteral calculus, collapsed urinary bladder, Prostatomegaly and ovoid low-attenuation lesion in liver. Patient spontaneously converted to sinus rhythm after
cervantes catheter was placed. At time of this evaluation patient resting comfortably in bed with Cervantes in place. He reports significant improvement of his abdominal pain and distention. He denies having palpitations or tachycardia, chest pain or
shortness of breath
Progress Note - Bin Cleaner
Subjective
Date of Service: May 01, 2024
Pt seen and examined. No complaints. No chest pain or shortness of breath.
Objective
Labs:
05/01/24 06:57
05/01/24 06:57
Labs
Hgb 13.5 g/dL (13.0-18.0) D 05/01/24 06:57
Hct 40.5 % (39.0-52.0) 05/01/24 06:57
Plt Count 188 10^3/uL (130-400) D 05/01/24 06:57
Sodium 136 mmol/L (135-145) D 05/01/24 06:57
Potassium 4.1 mmol/L (3.5-5.1) 05/01/24 06:57
BUN 45 mg/dl (9-20) H 05/01/24 06:57
Creatinine 1.4 mg/dL (0.7-1.3) H 05/01/24 06:57
Glucose 96 mg/dl (70-99) 05/01/24 06:57
Troponins
04/30/24
06:32
Troponin I 0.600 H*
Vital Signs and I&O:
Vital Signs
Temp Pulse Resp BP Pulse Ox
98.0 F 70 16 130/80 96
05/01/24 07:55 05/01/24 07:55 05/01/24 07:55 05/01/24 07:55 05/01/24 07:55
Vital Signs
Temp Pulse Resp BP Pulse Ox
98.0 F 70 16 130/80 96
05/01/24 07:55 05/01/24 07:55 05/01/24 07:55 05/01/24 07:55 05/01/24 07:55
Intake & Output
04/29/24 04/30/24 05/01/24 05/02/24
06:59 06:59 06:59 06:59
Intake Total 1959 / 1959
Output Total 5950 / 5950
Balance -3990 / -3990
Physical Exam
Physical Exam
General: No acute distress, AAOX3
Neck: Negative JVD
Heart: Regular, Negative S3 positive S1/S2, Negative S4, No murmur
Lungs: CTA b/l, negative wheezes/rales/rhonchi
Abd: Positive BS, NT/ND, neg rebound/rigidity/guarding
Ext: Negative cyanosis/clubbing/edema
Neuro: nonfocal
--- NOTE | 2024-05-01 11:28 | W.PN.URO.CBU ---
Today's Communication / Plan
-
Keep Crowley: patient advised that he will need it at least another 2 weeks at which time a voiding trial will be attempted
Assessment / Plan
-
Prostatomegaly with longstanding bladder outlet obstruction which has advanced to urine retention with obstructive uropathy: Crowley placed 04/30/24 Azotemia and hyponatremia: improving
Radiographic evidence of right forniceal rupture
History of elevated PSA
Diagnosis
-
Date of Service: May 01, 2024
-
Patient Diagnosis:
Urine retention with obstructive uropathy
Right forniceal rupture with retroperitoneal extravasation of urine and prostatomegaly by CT scan: images personally reviewed
Recent onset of symptoms c/w overflow urine incontinence
--
Personal and family history of BPH
History of elevated PSA: s/p negative prostate biopsy x 2
Subjective
-
Comfortable
No catheter bother
Objective
-
Vital Signs
Temp Pulse Resp BP Pulse Ox
98.0 F 70 16 130/80 96
05/01/24 07:55 05/01/24 07:55 05/01/24 07:55 05/01/24 07:55 05/01/24 07:55
Intake and Output
04/30/24 05/01/24 05/02/24
06:59 06:59 06:59
Intake Total 1960 / 1959
Output Total 5950 / 5950
Balance -3990 / -3990
Intake:
Oral fluids 960 / 960
IV fluids (Total) 1000 / 1000
NSS 1000 / 1000
Output:
Urine, Crowley 5950 / 5950
Laboratory Results
05/01/24 06:57
05/01/24 06:57
Review of Systems
-
Constitutional: No Symptoms
Respiratory: No Symptoms
Cardiac: No Symptoms
Abdomen/GI: No Symptoms
: Incontinence and Difficulty Voiding
Neurological: No Symptoms
Physical Exam
-
General - well nourished, no acute distress
Abdomen - soft, non-tender
Genitalia - normal with Crowley draining clear urine
Counseling
-
Will add tamsulosin to medical regiment 05/02/24
May resume Eliquis 05/02/24: discussed with Dr. Louise
Discussed plan with Dr. Whitney
[2024-05-01 11:46] LABS: Troponin I 0.258 ng/ml
[2024-05-02 03:13] VITALS: BP 127/73
[2024-05-02 06:00] VITALS: BMI 24.8
[2024-05-02 07:18] VITALS: BP 140/91
[2024-05-02] MEDS: ELIQUIS 5 MG PO (07:34)
[2024-05-02] MEDS: TOPROL XL 25 MG PO (07:35)
[2024-05-02] MEDS: FLOMAX 0.8 MG PO (07:35)
[2024-05-02] MEDS: PROSCAR 5 MG PO (07:36)
[2024-05-02 07:45] LABS: Hematocrit 42.1 % (39.0-52.0); Hemoglobin 14.3 g/dL (13.0-18.0); Mean Corpuscular Hgb 31.1 pg (27.0-31.0); Mean Corpuscular Volume 91.5 fL (80.0-94.0); Mean Platelet Volume 10.6 fL (7.4-10.4); Platelet Count 220 10^3/uL (130-400); Red Cell Dist. Width 13.1 % (11.5-14.5)
[2024-05-02 08:10] LABS: Blood Urea Nitrogen 28 mg/dl (9-20); Carbon Dioxide 31 mmol/L (22-30); Chloride 99 mmol/L (98-107); Estimated Creatinine Clearance 62 ml/min; Glucose 92 mg/dl (70-99); Potassium 4.2 mmol/L (3.5-5.1); Sodium 138 mmol/L (135-145); eGFR > 60.00
--- NOTE | 2024-05-02 09:23 | W.PN.URO.CBU ---
Today's Communication / Plan
-
Home with Crowley catheter
Assessment / Plan
-
Prostatomegaly with longstanding bladder outlet obstruction which has advanced to urine retention with obstructive uropathy: Crowley placed 04/30/24
Uremia and hyponatremia: resolved
Radiographic evidence of right forniceal rupture
History of elevated PSA
Diagnosis
-
Date of Service: May 02, 2024
-
Patient Diagnosis:
Urine retention with obstructive uropathy
Right forniceal rupture with retroperitoneal extravasation of urine and prostatomegaly by CT scan: images personally reviewed
Recent onset of symptoms c/w overflow urine incontinence
--
Personal and family history of BPH
History of elevated PSA: s/p negative prostate biopsy x 2
Subjective
-
Comfortable
No catheter bother
Objective
-
Vital Signs
Temp Pulse Resp BP Pulse Ox
98.5 F 76 20 140/91 95
05/02/24 07:18 05/02/24 07:35 05/02/24 07:18 05/02/24 07:35 05/02/24 07:58
Intake and Output
05/01/24 05/02/24 05/03/24
06:59 06:59 06:59
Intake Total 1959 / 1959 1679 / 1680
Output Total 5950 / 5950 2725 / 2725
Balance -3990 / -3990 -1045 / -1045
Intake:
Oral fluids 960 / 960 1680 / 1680
IV fluids (Total) 1000 / 1000
NSS 1000 / 1000
Output:
Urine, Crowley 5950 / 5950 2725 / 2725
Laboratory Results
05/02/24 06:50
05/02/24 06:50
Review of Systems
-
Constitutional: Fatigue
Respiratory: No Symptoms
Cardiac: No Symptoms
Abdomen/GI: No Symptoms
: Difficulty Voiding
Neurological: No Symptoms
Physical Exam
-
General - well nourished, no acute distress
Abdomen - soft, non-tender
Genitalia - normal with Crowley draining clear urine
Counseling
-
Continue tamsulosin and finasteride
--- NOTE | 2024-05-02 10:21 | W.PN.HOSP.TC ---
Today's Communication/Plan
-
possible DC post echo with close outpatient follow up
Assessment / Plan
Assessment / Plan
HPI: 73-year-old male with a past medical history of paroxysmal atrial fibrillation, CHF, and hypertension who presents with decreased urine output, fall, and near syncope. Upon arrival to the ED, patient was found to have rapid atrial
fibrillation and hypotension. He received IV Cardizem bolus and drip, converted to normal sinus rhythm. He self discontinued all his medications years ago, because he did not want to take them.
CT abd/pelvis:
1. Moderate right and mild left hydroureteronephrosis without CT evidence for an obstructing ureteral calculus. Large amount of perinephric fat stranding and fluid about the right kidney for which correlation for a superimposed infection is
recommended.
2. Collapsed urinary bladder with a Cervantes catheter in place.
3. Prostatomegaly.
4. Subtle ovoid low-attenuation lesion in the hepatic dome measuring 5.2 cm. Recommend a follow-up abdominal MRI without and with contrast for more definitive characterization on a routine basis.
#Obstructive uropathy
#Prostamegaly
#Acute kidney injury
#Moderate right hydroureteronephrosis with right forniceal rupture, mild left hydroureteronephrosis
#History of elevated PSA
History of 2 prostate biopsies in the past
Cervantes inserted in the ER. Appreciate urology input, patient will need to be discharged home with Cervantes. Possible void trial in 2 weeks after discharge
Flomax and Finasteride initiated this admission
No anticoagulation for 48 hours secondary to risk of decompression hematuria
Creatinine 8.2 on admission, now 1.0
Gentle IV fluids, trend creatinine, no nephrotoxic drugs/NSAIDs
#Hyponatremia
Resolved, TSH/cortisol normal
Fluid restrict, trend sodium
#Atrial fibrillation with rapid ventricular response
Paroxysmal Atrial Fibrillation
Converted to normal sinus rhythm in the ER status post IV Cardizem bolus and drip
Started Toprol XL 25 mg twice a day
No anticoagulation for 48 hours secondary to risk of decompression hematuria
Eliquis resumed
#Leukocytosis
Afebrile, UA negative
No cough, no shortness of breath
Resolved. Monitor off antibiotics
#History of essential hypertension
Blood pressure soft, monitor on metoprolol for rate control
#Medical noncompliance
Self discontinued all his medications years ago - willing to take now
DVT prophylaxis�SCDs
Full code
Updated family at bedside 04/30
Discussed with cardiology and urology
Total time spent to see the patient on the floor, examine the patient, review data and lab results, discuss treatment plan with patient, nursing staff around 51 minutes.
Physical Exam
General: No acute distress
HEENT: Normocephalic, Atraumatic, EOMI, MMM
Respiratory: Clear to Auscultation bilaterally
Cardiac: Normal S1/S2, Regular Rate and Rhythm
GI: Soft, Nontender, Nondistended, Normal Bowel Sounds
Extremities: No Clubbing, Cyanosis, or Edema
Neuro: Nonfocal/Grossly Intact
Psych: Calm, Cooperative
Derm: No Visible lesions
Anticipated Discharge: Within 24 hours
Subjective/Interval History
-
Date of Service: May 02, 2024
feeling well
cervantes in place
no chest pain or shortness of breath
Objective Data
-
Labs:
Laboratory Results
05/02/24
06:50
WBC 6.0
Hgb 14.3
Hct 42.1
Plt Count 220
Sodium 138
Potassium 4.2
Chloride 99
Carbon Dioxide 31 H
BUN 28 H
Creatinine 1.0
Glucose 92
Calcium 9.0
Vital Signs:
Vital Signs
Temp Pulse Resp BP Pulse Ox
98.5 F 76 20 140/91 95
05/02/24 07:18 05/02/24 07:35 05/02/24 07:18 05/02/24 07:35 05/02/24 07:58
I&O
05/01/24 05/02/24 05/03/24
06:59 06:59 06:59
Intake Total 1959 / 1959 1680 / 1680
Output Total 5950 / 5950 2725 / 2725
Balance -3990 / -3990 -1045 / -1045
Review of Systems
-
History Source: Patient
All other systems: Reviewed and negative
Physical Exam
-
General: No Apparent Distress
HEENT: PERRLA
Respiratory: Clear to Auscultation; Negative Wheezes
Cardiac: Regular Rhythm and S1/S2
GI: Soft and Nontender
Musculoskeletal: No Edema
Skin: Warm and Dry; Negative Rash
Neuro: AO x 3
Psych: Calm
Data Reviewed
-
Diagnostic Radiology: Report Reviewed by me
Labs: Labs Reviewed by me
[2024-05-02 12:25] VITALS: BP 150/90
[2024-05-02 15:07] VITALS: BP 126/87
--- NOTE | 2024-05-02 15:34 | W.PN.CARDCBS ---
Addendum entered and electronically signed by Cher Jaime DO 05/02/24 17:26:
I saw and examined the patient.
The Skiing Teacher's note was reviewed and I agree with the note.
Comment: Patient seen and examined with at bedside. He is anxious to go home. We reviewed paroxysmal atrial flutter/fibrillation, new reduction in ejection fraction mildly abnormal troponin. We reviewed his echocardiogram as well as
recommendations for outpatient cardiac follow-up and additional cardiac testing such as a stress test. He denies chest pain or pressure. He denies shortness of breath. He denies palpitations. He does exhibit a bit of denial regarding his medical
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
General: No acute distress, AAOX3
Heart: Regular, positive S1-S2. No murmur.
Lungs: CTA b/l, negative wheezes/rales/rhonchi
Abd: Positive BS, NT/ND, neg rebound/rigidity/guarding
Ext: No edema
: Cervantes catheter
Plan:
Presents 04/30/2024 with abdominal pain/distention and minimal urine output, palpitations, weakness and syncopal event
INGRIS, admission creatinine 8.2.
-CT of abdomen and pelvis showing moderate right and mild left hydronephrosis collapsed urinary bladder and prostatomegaly.
-Cervantes catheter placed 04/30/2024 in emergency department with good urine output.
-Urology following; Plan to discharge with Cervantes catheter and outpatient urology follow-up
-Cr much improved/normalized 8.2->1.4->1.0
Paroxysmal atrial fibrillation with rapid ventricular response, spontaneous conversion in emergency department after Cervantes insertion.
-Patient had PVI ablation in February 2021 and had been maintained on amiodarone and Eliquis however self discontinued in early 2021
-[id number] score 3
-Continue new metoprolol XL 25 mg twice daily
-Started on Eliquis 5 mg 05/02/24
History of nonischemic cardiomyopathy likely tachycardia induced with recovered ejection fraction on echo in 2021.
-Echo preliminary results EF 45 to 50%
-Troponin peaked at 0.6 on 04/30/2024; denies chest pain
-Appears euvolemic not requiring diuretics
-Eventually need GDMT with JAXON/ARB once we know renal function is stable. Hold for now given creat was 8.2 on admission
-Will arrange for Lexiscan PET/CT stress test as outpatient
Patient and family updated. Patient stable from cardiac standpoint for discharge. Outpatient cardiology office will arrange stress test.
Original Note:
Today's Communication / Plan
-
Resumed Eliquis 03/02/2024 in AM
Discharge home on Toprol 25 mg daily
Will arrange for outpatient PET/CT stress test
Outpatient cardiology follow-up has been arranged
Patient stable for discharge
Impression / Plan
-
.
PCP: Mika Brown
Patient Portal Representative: Luis Newton, last seen 04/2021
Impression:
Presents 04/30/2024 with abdominal pain/distention and minimal urine output as well as urinary incontinence
Syncope hitting head 04/29/2024
INGRIS, admission creatinine 8.2
Atrial fibrillation with rapid ventricular response, spontaneous conversion in emergency department
Abnormal troponin initial 0.6
Urinary retention/hydronephrosis
Prostatomegaly
Head contusion
Hyponatremia
Leukocytosis
Hx Paroxysmal, typical atrial flutter
Status post PVI and atrial flutter ablation February 2021
HF with recover EF
Nonischemic cardiomyopathy, resolved
Hypertension
Elevated PSA
Medication noncompliance
Echo 05/02/2024: preliminary EF 45 to 50%. Final report pending
Echo 07/02/2021: EF 55 to 60% with normal regional wall motion. Mild to moderate LVH. No significant valvular disease, PAP 27 mmHg
Echo 10/30/20: EF 33%, moderately enlarged LA and mildly dilated RA, compared to echo 09/12/20 the ER is lower
Echo 09/12/2020: EF 40-45%, mild hypokinesis of basal inferolateral wall and apical lateral zuleta, stage II diastolic dysfunction, biatrial dilatation, mild to mod MR, top normal aortic root size 3.6 cm sinus of Valsalva 3.[address] junction, mildly
dilated ascending aorta 4.0 cm
Nuc stress test 11/07/2020:no active coronary artery disease and moderately to severely reduced heart function.
Plan:
-Presents 04/30/2024 with abdominal pain/distention and minimal urine output, palpitations, weakness and syncopal event
-INGRIS, admission creatinine 8.2. CT of abdomen and pelvis showing moderate right and mild left hydronephrosis collapsed urinary bladder and prostatomegaly. Cervantes catheter placed 04/30/2024 in emergency department with good urine output. Nephrology
and urology following.
-Cr much improved/normalized 8.2->1.4->1.0
-Patient placed on Flomax and finasteride this admission. Plan for possible void trial in 2 weeks after discharge
-Resume anticoagulation once ok with urology. Anticoagulation being held by urology for up to 48 hrs from admit due to risk of bleeding.
-Paroxysmal atrial fibrillation with rapid ventricular response, spontaneous conversion in emergency department after Cervantes insertion.
-Patient had PVI ablation in February 2021 and had been maintained on amiodarone and Eliquis however self discontinued in early 2021; he reports he has had no reoccurrence of atrial fibrillation until this week.
-New to Toprol this admit still with brief PAT/PAF
-Started on Eliquis 5 mg 05/02
-History of nonischemic cardiomyopathy likely tachycardia induced with recovered ejection fraction on echo in 2021.
-Echo preliminary results EF 45 to 50%
-Toprol added this admit.
-Eventually need GDMT with JAXON/ARB once we know renal function is stable. Hold for now given creat was 8.2 on admission
-Will arrange for PET/CT stress test as outpatient
-Abnormal troponin peak 0.6 suspect nonischemic myocardial injury secondary to INGRIS, hydronephrosis and A-fib with rapid ventricular response.
-Medical therapy of non-ischemic myocardial injury
-EKG in sinus rhythm does not show any ischemic changes.
-Will arrange for PET/CT stress test as outpatient
Patient and family updated. Patient stable from cardiac standpoint for discharge. Outpatient cardiology office will arrange stress test.
HPI 04/30/2024:
Patient is a 73-year-old male with past medical history significant for paroxysmal atrial fibrillation status post PVI and atrial flutter ablation February 2021, nonischemic cardiomyopathy, heart failure and hypertension. Patient was found to have a
nonischemic cardiomyopathy in 2020 in the setting of atrial fibrillation with rapid ventricular response. He underwent PVI ablation and was maintaining sinus rhythm with last follow-up in April 2021. He had repeat echocardiogram in June
2021 which showed normalization of ejection fraction to 55 to 60%. He then was lost to follow-up and has not seen cardiology since. Patient has not seen a doctor in over 3 years. He self discontinued taking all his medication including his
amiodarone and Eliquis.
Patient now presenting to emergency department 04/30/2024 with abdominal pain/distention, decreased urine output with urinary incontinence and syncopal event. Patient reports approximately 1 week ago he started noticing difficulty urinating with
urinary tract symptoms. Then over the last 3 days he noted very minimal urine output with some incontinence. He started having some abdominal pain and distention. He was helping his symptoms by getting hot showers and using warm compresses to the
abdominal area. He started having intermittent palpitations and rapid heartbeats approximately 3 days ago. Last evening after getting out of the shower he had a syncopal episode where he lost consciousness and hit his head. Blood work showed INGRIS
with creatinine of 8.2 as well as hyponatremia and mild leukocytosis. Troponin elevated at 0.600. He was found to be in atrial fibrillation with rapid ventricular response. Head CT showed no acute intracranial abnormality. CT of abdomen showed
moderate right and mild left hydroureteronephrosis without CT evidence for an obstructing ureteral calculus, collapsed urinary bladder, Prostatomegaly and ovoid low-attenuation lesion in liver. Patient spontaneously converted to sinus rhythm after
cervantes catheter was placed. At time of this evaluation patient resting comfortably in bed with Cervantes in place. He reports significant improvement of his abdominal pain and distention. He denies having palpitations or tachycardia, chest pain or
shortness of breath
Progress Note - Patient Portal Representative
Subjective
Date of Service: May 02, 2024
Objective
Labs:
05/02/24 06:50
05/02/24 06:50
Labs
Hgb 14.3 g/dL (13.0-18.0) 05/02/24 06:50
Hct 42.1 % (39.0-52.0) 05/02/24 06:50
Plt Count 220 10^3/uL (130-400) 05/02/24 06:50
Sodium 138 mmol/L (135-145) 05/02/24 06:50
Potassium 4.2 mmol/L (3.5-5.1) 05/02/24 06:50
BUN 28 mg/dl (9-20) H 05/02/24 06:50
Creatinine 1.0 mg/dL (0.7-1.3) 05/02/24 06:50
Glucose 92 mg/dl (70-99) 05/02/24 06:50
Troponins
04/30/24 05/01/24
06:32 10:28
Troponin I 0.600 H* 0.258 H*
Vital Signs and I&O:
Vital Signs
Temp Pulse Resp BP Pulse Ox
99 F 72 20 150/90 99
05/02/24 12:25 05/02/24 12:25 05/02/24 12:25 05/02/24 12:25 05/02/24 12:25
Vital Signs
Temp Pulse Resp BP Pulse Ox
99 F 72 20 150/90 99
05/02/24 12:25 05/02/24 12:25 05/02/24 12:25 05/02/24 12:25 05/02/24 12:25
Intake & Output
04/30/24 05/01/24 05/02/24 05/03/24
06:59 06:59 06:59 06:59
Intake Total 1959 / 1959 1680 / 1680
Output Total 5950 / 5950 2725 / 2725
Balance -3990 / -3990 -1045 / -1045
--- NOTE | 2024-05-02 15:46 | CM ---
Alert awake oriented patient who lives with his Mary who lives in a 2 story home with 5 step to enter and bed and bathroom on first floor. He is independent in driving and in all activities of daily living.He was offered VN he declined need.Pt
for ECHO t6oday. will drive him home.
No VN hx / No SNF history
Pharmacy [facility]
PCP DR Brown
PLAN Home Declined VN
--- NOTE | 2024-05-02 16:23 | W.DS.TRANS ---
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
-
Discharge Instructions:
Sleep Apnea Risk Intermediate
Discharge Diagnosis/Procedures Urinary Retention
Diet 2 Gram Sodium
Activity As tolerated
Driving Restrictions As prior to admission
Bathing Restrictions None
Others Tests You will need a PET CT Stress test. Cardiology
is arranging and the PET CT department will
contact to schedule
Specialty Instructions Weigh Daily
Instructions:
Stand-Alone Forms:
Changes to Home Medications: Yes
Discharge Medications:
DC Medications w/original date entered in [facility]
fredrick (Zingiber officinalis) 250 mg capsule 250 mg PO DAILY Supplement 04/30/24
magnesium oxide 250 mg PO DAILY Supplement 04/30/24
potassium 99 mg tablet 99 mg PO DAILY Supplement 04/30/24
apixaban 5 mg tablet (Eliquis) 5 mg PO BID #60 tabs 05/02/24
finasteride 5 mg tablet 5 mg PO DAILY #30 tabs 05/02/24
metoprolol succinate 25 mg tablet,extended release 24 hr 25 mg PO BID #60 tabs 05/02/24
tamsulosin 0.4 mg capsule (Flomax) 0.8 mg (2 x 0.4 mg) PO DAILY #60 caps 05/02/24
Home Medication Changes
Stop supplements as they may interfere and increase risk of bleeding on Eliquis: Black Cohosh root, Dandelion root, Slippery Elm Capsules, Turmeric
You are newly started on:
Eliquis twice a day
Metoprolol XL 25mg twice a day
Flomax 0.8mg daily
Pending Results: No
--- NOTE | 2024-05-02 17:04 | W.DCSUMMARY ---
Discharge Summary
Discharge Data
Date of Admission: 04/30/24
Date of Discharge: 05/02/24
-
Pending Results: No
Hospital Course
Discharging Physician : Dr. Noy Garza
Disposition : Home
Primary care physician : Dr. Mika Brown
Principal Discharge diagnosis : Urinary Retention with radiological finding of right hydroureteronephrosis with right forniceal rupture
Hospital Course :
Mr. Brandon Gomez is a 73 yo man with hx paroxysmal afib, CHF, HTN presents to the ER with decreased urine output and near syncope. Patient had self discontinued his medication over past year. Upon arrival to the ER he was found to be in rapid
afib s/p conversion to sinus rhythm post Diltiazem. Labs significant for creatinine 8.2. CT showed retention with moderate right and mild left hydroureteronephrosis with large amount of fat stranding and fluid around right kidney.
A cervantes catheter was placed. Patient was admitted to medicine with Urology and Cardiology following. Regarding renal failure and obstruction, patient's creatinine normalized on hospital day 3. He is discharged with cervantes catheter in place and
newly started on Flomax 0.8mg daily and Finasteride. He will follow up in [address] Wilhelm.
Regarding Atrial fibrillation, he is prescribed Eliquis and Metoprolol XL.
TTE repeated which shows EF 45-50%. Plan is for outpatient PET/CT stress test.
Time spent on discharge was 35 minutes.
Important imaging findings :
CT abd/pelvis:
1. Moderate right and mild left hydroureteronephrosis without CT evidence for an obstructing ureteral calculus. Large amount of perinephric fat stranding and fluid about the right kidney for which correlation for a superimposed infection is
recommended.
2. Collapsed urinary bladder with a Cervantes catheter in place.
3. Prostatomegaly.
4. Subtle ovoid low-attenuation lesion in the hepatic dome measuring 5.2 cm. Recommend a follow-up abdominal MRI without and with contrast for more definitive characterization on a routine basis.
TTE 05/02/24
CONCLUSIONS
Upper normal left ventricular size and mildly reduced systolic function. Mild
hypokinesis of the basal to mid inferolateral, anterolateral and inferior
zuleta. Moderate concentric left ventricular hypertrophy. LV ejection fraction
is 45-50% by visual assessment. Stage I diastolic dysfunction suggestive of
abnormal relaxation.
Normal right ventricular size and function.
Indexed LA volume is moderately abnormal (42-48 mL/m2).
Mild mitral regurgitation.
Mild tricuspid regurgitation. Estimated pulmonary artery pressure of 20-25 mmHg
assuming a right atrial pressure of 3 mmHg.
Top normal aortic root. Sinus of Valsalva measures 3.7 cm.
Compared to previous echo 07/02/21, the LVEF has decreased from 55% to 45 to
50%. There does appear to be some hypokinesis of the basal to mid
inferolateral and anterolateral zuleta.
Indications:
NICM, Afib w/ RVR
Procedure findings :
Discharge Plan
-
Patient Disposition: Home (Routine Discharge)
Discharge Diagnosis/Procedures: Urinary Retention
Diet: 2 Gram Sodium
Activity: As tolerated
Driving Restrictions: As prior to admission
Bathing Restrictions: None
Others Tests: You will need a PET CT Stress test. Cardiology is arranging and the PET CT department will contact to schedule
Specialty Instructions: Weigh Daily- Call MD for wt gain/loss 3 lbs overnight/5 lbs in 1 week
Referrals:
Mika Brown DO [Family Provider] - in less than 1 week
Juvecnio Wilhelm MD [Active] - in two to three weeks
Ann Marie Gipson PA-C [Specified Professional Personl] - 05/30/24 8:20 am (You have cardiology follow-up with Ann Marie Jameson PA-C and Dr. Newton's office on May 30 at 8:20 AM [address] [facility] [address] [facility]. If you are unable to make this
appointment please call [phone] to reschedule)
Additional Discharge Medication Instructions: Stop supplements as they may interfere and increase risk of bleeding on Eliquis: Black Cohosh root, Dandelion root, Slippery Elm Capsules, Turmeric
You are newly started on:
Eliquis twice a day
Metoprolol XL 25mg twice a day
Flomax 0.8mg daily
Prescriptions:
New
metoprolol succinate 25 mg Tablet Extended Release 24 Hr
25 mg PO BID Qty: 60 0RF
finasteride 5 mg Tablet
5 mg PO DAILY Qty: 30 0RF
Eliquis 5 mg Tablet
5 mg PO BID Qty: 60 0RF
tamsulosin [Flomax] 0.4 mg capsule
0.8 mg PO DAILY Qty: 60 0RF
Continued
potassium 99 mg Tablet
99 mg PO DAILY
fredrick (Zingiber officinalis) 250 mg Capsule
250 mg PO DAILY
magnesium oxide 250 mg magnesium Tablet
250 mg PO DAILY
Discontinued
Slippery Elm Capsules
2 cap PO Q48H PRN (Reason: GI issuse)
black cohosh root extract 80 MG capsule
40 mg PO DAILY
dandelion root 500 mg Capsule
500 mg PO DAILY
turmeric root extract 500 mg Tablet
1,000 mg PO DAILY
Discharge Orders:
Discharge Patient (As Directed); Ordered 05/02/24
Ordered By: Noy Garza
Discharge Date and Time
Print Language: [place] ISLAND[place]
== END 2024-05-02 17:45 | disposition home or self-care (01) | DRG 683 ==
LOC: 4 EAST ACU 12:46
PROVIDERS: Nuclear Medicine Nuclear Cardiology; ADMITTING PHYSICIAN Family Medicine; ATTENDING PHYSICIAN Student in an Organized Health Care Education/Training Program; CONSULT PHYSICIAN Internal Medicine Cardiovascular Disease; CONSULT PHYSICIAN Specialist; EMERGENCY PHYSICIAN Emergency Medicine; FAMILY PHYSICIAN Family Medicine
DX: N17.9 Acute kidney failure, unspecified (principal); E87.1 Hypo-osmolality and hyponatremia; N13.8 Other obstructive and reflux uropathy; I42.8 Other cardiomyopathies; I50.22 Chronic systolic (congestive) heart failure; I48.3 Typical atrial flutter; E87.20 Acidosis, unspecified; R39.0 Extravasation of urine; I5A Non-ischemic myocardial injury (non-traumatic); N13.30 Unspecified hydronephrosis; N40.1 Benign prostatic hyperplasia with lower urinary tract symptoms; S00.93XA Contusion of unspecified part of head, initial encounter; E78.5 Hyperlipidemia, unspecified; D72.829 Elevated white blood cell count, unspecified; N28.89 Other specified disorders of kidney and ureter; R32 Unspecified urinary incontinence; W18.39XA Other fall on same level, initial encounter; Y93.9 Activity, unspecified; Y92.009 Unspecified place in unspecified non-institutional (private) residence as the place of occurrence of the external cause; I11.0 Hypertensive heart disease with heart failure; F17.290 Nicotine dependence, other tobacco product, uncomplicated; I48.0 Paroxysmal atrial fibrillation; R97.20 Elevated prostate specific antigen [PSA]; R55 Syncope and collapse; Z91.148 Patient's other noncompliance with medication regimen for other reason; Z91.199 Patient's noncompliance with other medical treatment and regimen due to unspecified reason; Z80.42 Family history of malignant neoplasm of prostate; Z82.3 Family history of stroke
CPT/HCPCS: 51702; 70450; 74176; 80048; 80053; 81003; 81015; 82533; 83735; 83930; 83935; 84300; 84439; 84443; 84484; 85025; 85027; 93005; 93306; 96374; 97161; 99291; J7030

== ENCOUNTER → 2024-07-05 08:05 | Outpatient (REF) | payer OTHER, SELFPAY | LOC: PET 08:05 | PROVIDERS: ATTENDING PHYSICIAN Internal Medicine Cardiovascular Disease | DX: R79.89 Other specified abnormal findings of blood chemistry (principal); I42.9 Cardiomyopathy, unspecified | CPT/HCPCS: 78431; A9555; J2785 ==